=== PATIENT | male | born 2000 | race Caucasian/White ===

== ENCOUNTER 2020-12-11 08:00 | Outpatient (CLI) | payer BC ==
--- NOTE | 2020-12-12 12:43 | XRAY Report ---
PROCEDURE: Ankle 3 View RT INDICATIONS: ANKLE JOINT PAIN, RIGHT TECHNIQUE: 3 views of the ankle were acquired. COMPARISON: None FINDINGS: Bones: No fractures or dislocations. Ankle mortise is normally aligned. No suspicious bony lesions . Soft tissues: No tibiotalar joint effusion. Achilles tendon appears normal. Anterior skin thickeni ng and soft tissue swelling noted. IMPRESSION: Anterior soft tissue swelling without fracture or dislocation. Reviewed by: Ez Hutchinson MD on 12/12/2020 11:42 AM JUAN CARLOS Approved by: Ez Hutchinson MD on 12/12/2020 11:42 AM JUAN CARLOS Station ID: [id number]
== END 2020-12-11 23:59 | disposition home or self-care (01) ==
LOC: DI.S 08:00
PROVIDERS: ATTEND Physician Assistant Medical
DX: R93.6 Abnormal findings on diagnostic imaging of limbs (principal); R93.89 Abnormal findings on diagnostic imaging of other specified body structures